=== PATIENT | female | born 1940 | race African-American/Black ===

== ENCOUNTER 2023-02-26 23:37 | Emergency (ER) | payer MEDICARE, OTHER ==
[~2023-02-26] VITALS: Ht 137.2 cm; Wt 46.4 kg
[~2023-02-26 23:37] MED LIST: AMOX500T2 PO; ASPI-825 PO; METF-444 PO; OLME40TA70 PO; SIMV-46 PO; SLOWK8 PO; [UNRECOGNIZED DRUG - CODE] PO; [UNRECOGNIZED DRUG - CODE] PO
[2023-02-26 23:47] VITALS: BP 163/57; PULSE 78; RESP 17; TEMP 98.7
[2023-02-27 01:50] LABS: BASOPHILS % (AUTO) 0.6 % (0.0-2.0); EOSINOPHILS % (AUTO) 1.2 % (1.0-6.0); HEMATOCRIT 36.2 % (36-46); LYMPHOCYTES # (AUTO) 1.6 K/uL (1.0-4.8); LYMPHOCYTES % (AUTO) 23.1 % (22.0-44.0); MEAN CORPUSCULAR HEMOGLOBIN 29.3 pg (26.0-34.0); MEAN CORPUSCULAR HGB CONC 33.3 G/dL (31.0-37.0); MEAN CORPUSCULAR VOLUME 88 fL (80-100); MONOCYTES # (AUTO) 0.7 K/uL (0.1-1.0); MONOCYTES % (AUTO) 10.7 % (2.0-9.0); NEUTROPHILS # (AUTO) 4.5 K/uL (1.8-7.7); NEUTROPHILS % (AUTO) 64.4 % (40.0-70.0); PLATELET COUNT (AUTO) 292 K/uL (150-450); RED BLOOD CELL COUNT(AUTO) 4.11 MIL/uL (4.00-5.20)
[2023-02-27 01:53] LABS: ANION GAP 8 mmol/L (8-16); CALCIUM, TOTAL 10.2 mg/dL (8.8-10.5); CARBON DIOXIDE 29 mmol/L (22-29); CHLORIDE 100 mmol/L (98-107); CREATININE 0.99 mg/dL (0.60-1.30); GLOMERULAR FILTR. RATE CALC > 60 mL/min (>60); GLUCOSE,RANDOM 123 mg/dL (70-110); POTASSIUM 3.6 mmol/L (3.5-5.1); SODIUM SERUM 137 mmol/L (136-145); UREA NITROGEN, BLOOD 10 mg/dL (7-18)
[2023-02-27 01:58] LABS: ALANINE AMINOTRANSFERASE 26 U/L (12-78); ALBUMIN 4.1 g/dL (3.4-5.0); ALKALINE PHOSPHATASE 153 U/L (46-116); ASPARTATE AMINOTRANSFERASE 23 U/L (15-37); BILIRUBIN,TOTAL 0.3 mg/dL (0.1-1.0); TOTAL PROTEIN, SERUM 9.3 g/dL (6.4-8.2)
[2023-02-27 02:00] LABS: TROPONIN I-HIGH SENSITIVITY 5 ng/L (<51)
== END 2023-02-27 02:40 | disposition home or self-care (01) ==
LOC: EMS 23:37
DX: S40.012A Contusion of left shoulder, initial encounter (principal); R55 Syncope and collapse; E11.9 Type 2 diabetes mellitus without complications; I10 Essential (primary) hypertension; F17.210 Nicotine dependence, cigarettes, uncomplicated; Z98.890 Other specified postprocedural states; W10.8XXA Fall (on) (from) other stairs and steps, initial encounter; Y93.H3 Activity, building and construction; Y92.89 Other specified places as the place of occurrence of the external cause; Y99.8 Other external cause status
CPT/HCPCS: 80053; 82962; 84484; 85025; 93005; 99284

== ENCOUNTER 2024-04-30 17:42 | Emergency (ER) | payer MEDICARE, OTHER ==
[~2024-04-30] VITALS: Ht 137.2 cm; Wt 52.3 kg
[~2024-04-30 17:42] MED LIST changes: +ALBU18HF12 IH; +ALEN70TA80 PO; +AMLO10TA55 PO; +AMOX-457 PO; -AMOX500T2 PO; +ASPI-1444 PO; -ASPI-825 PO; +ATOR20TA65 PO; +AZEL137S8 NASAL; +BENZ-227 PO; +CILO50TA2 PO; +FERR-72 PO; +GUAIF600 PO; +HYDR-4061 PO; +HYDR25TA PO; +LATA2.5D14 OU; +LOSA-382 PO; +METF-1211 PO; -METF-444 PO; +METO-391 PO; +METR500 PO; -OLME40TA70 PO; +PRED-729 PO; -SIMV-46 PO; -SLOWK8 PO; -[UNRECOGNIZED DRUG - CODE] PO; -[UNRECOGNIZED DRUG - CODE] PO
[2024-04-30 17:53] VITALS: BP 135/77; PULSE 84; RESP 18; TEMP 98.2; O2SAT 99
[2024-04-30] MEDS ORDERED: CETI10TA58 PO (19:30)
[2024-04-30] MEDS: LIDOCAINE 1% 10 ML VIAL ID ONE (20:19)
[2024-04-30] MEDS: PERTUSS(ACELL),DIPH,TET/PF 0.5 ML SYRINGE [ADULT] IM. ONE (20:20)
== END 2024-04-30 21:22 | disposition home or self-care (01) ==
LOC: EMS 17:45
DX: S01.81XA Laceration without foreign body of other part of head, initial encounter (principal); E11.9 Type 2 diabetes mellitus without complications; E78.00 Pure hypercholesterolemia, unspecified; I10 Essential (primary) hypertension; F17.210 Nicotine dependence, cigarettes, uncomplicated; Z79.82 Long term (current) use of aspirin; Z79.84 Long term (current) use of oral hypoglycemic drugs; Z79.899 Other long term (current) drug therapy; Z95.5 Presence of coronary angioplasty implant and graft; W10.9XXA Fall (on) (from) unspecified stairs and steps, initial encounter; Y93.89 Activity, other specified; Y92.89 Other specified places as the place of occurrence of the external cause; Y99.8 Other external cause status
CPT/HCPCS: 99283; 90715; 90471; 12001; J3490